=== PATIENT | female | born 1990 | race Caucasian/White ===

== ENCOUNTER 2017-09-20 11:03 | Inpatient (IN) | payer MEDICAID ==
[~2017-09-20] VITALS: Ht 167.6 cm; Wt 66.2 kg
[2017-09-20 11:44] VITALS: BP 123/77
[2017-09-20] MEDS ORDERED: HYDR-4031 PO (12:06)
[2017-09-20] MEDS ORDERED: INFLUENZA VIRUS VACCINE QVS 2017-18 (3YR+)/PF 60 MCG/0.5 ML SYRINGE IM ONE (12:30)
[2017-09-20 14:10] VITALS: BP 121/83
[2017-09-20] MEDS: LORazepam 2 MG TABLET PO PRN ×2 (15:01→19:12)
[2017-09-20 16:25] VITALS: BP 128/75
[2017-09-21 06:52] VITALS: BP 115/72
[2017-09-21 07:59] LABS: BASOPHILS # (AUTO) 0.05 K/uL (0.00-0.20); BASOPHILS % (AUTO) 0.8 % (0.0-2.0); EOSINOPHILS % (AUTO) 2.98 % (1.0-6.0); HEMATOCRIT 42.3 % (36-46); HEMOGLOBIN 14.2 g/dL (12.0-16.0); LYMPHOCYTES # (AUTO) 2.1 K/uL (1.0-4.8); LYMPHOCYTES % (AUTO) 30.8 % (22.0-44.0); MEAN CORPUSCULAR HEMOGLOBIN 31.8 pg (26.0-34.0); MEAN CORPUSCULAR HGB CONC 33.5 G/dL (31.0-37.0); MEAN CORPUSCULAR VOLUME 95 fL (80-100); MONOCYTES # (AUTO) 0.4 K/uL (0.1-1.0); MONOCYTES % (AUTO) 6.2 % (2.0-9.0); NEUTROPHILS % (AUTO) 59.2 % (40.0-70.0); PLATELET COUNT (AUTO) 307 K/uL (150-450); RED BLOOD CELL COUNT(AUTO) 4.45 MIL/uL (4.00-5.20); RED CELL DISTRIBUTION WIDTH 12.9 % (11.5-14.5); WHITE BLOOD COUNT (AUTO) 6.7 K/uL (4.5-11.0)
[2017-09-21 08:34] LABS: ALANINE AMINOTRANSFERASE 25 U/L (12-78); ALBUMIN 3.5 g/dL (3.4-5.0); ANION GAP 9 mmol/L (8-16); ASPARTATE AMINOTRANSFERASE 19 U/L (15-37); BILIRUBIN,TOTAL 0.3 mg/dL (0.1-1.0); CALCIUM, TOTAL 9.2 mg/dL (8.8-10.5); CARBON DIOXIDE 27 mmol/L (22-29); CHLORIDE 102 mmol/L (98-107); CHOL/HDL RATIO 2.1 (3.9-5.7); CREATININE 0.79 mg/dL (0.60-1.30); GLOMERULAR FILTR. RATE CALC > 60 mL/min (>60); SODIUM SERUM 138 mmol/L (136-145); THYROID STIMULATING HORMONE 6.41 uIU/mL (0.36-3.74); TOTAL PROTEIN, SERUM 7.8 g/dL (6.4-8.2); UREA NITROGEN, BLOOD 12 mg/dL (7-18)
[2017-09-21] MEDS: LORazepam 2 MG TABLET PO PRN ×3 (08:35→18:53)
[2017-09-21 08:43] LABS: HEMOGLOBIN A1C 5.2 % (4.5-6.2)
[2017-09-21 16:27] VITALS: BP 120/78
[2017-09-21] MEDS ORDERED: IBUPROFEN 400 MG TABLET PO PRN (18:45)
[2017-09-21] MEDS: ZOLPIDEM TARTRATE 10 MG TABLET PO PRN (22:44)
[2017-09-22] MEDS: LEVOTHYROXINE SODIUM 50 MCG TABLET PO SCH (06:38)
[2017-09-22 06:44] VITALS: BP 111/68
[2017-09-22] MEDS: LITHIUM CARBONATE 300 MG CAPSULE PO SCH ×2 (08:38→16:18)
[2017-09-22 09:15] VITALS: BP 118/78
[2017-09-22] MEDS: LORazepam 2 MG TABLET PO PRN ×2 (11:00→15:10)
[2017-09-22] MEDS: HALOPERIDOL 5 MG TABLET PO PRN (13:34)
[2017-09-22 16:13] VITALS: BP 116/71
[2017-09-22] MEDS: ZOLPIDEM TARTRATE 10 MG TABLET PO PRN (20:13)
[2017-09-23 06:05] VITALS: BP 121/69
[2017-09-23] MEDS: LEVOTHYROXINE SODIUM 50 MCG TABLET PO SCH (06:35)
[2017-09-23] MEDS: LORazepam 2 MG TABLET PO PRN ×3 (07:00→16:04)
[2017-09-23] MEDS: HALOPERIDOL 5 MG TABLET PO PRN ×3 (07:00→16:04)
[2017-09-23] MEDS: LITHIUM CARBONATE 300 MG CAPSULE PO SCH ×2 (08:23→16:04)
[2017-09-23 08:39] VITALS: BP 112/68
[2017-09-23] MEDS: ACETAMINOPHEN 325 MG TABLET PO PRN ×2 (08:53→16:33)
[2017-09-23 16:21] VITALS: BP 102/62
[2017-09-23 18:33] VITALS: BP 108/65
[2017-09-24] MEDS: LORazepam 2 MG TABLET PO PRN ×2 (06:16→11:44)
[2017-09-24] MEDS: HALOPERIDOL 5 MG TABLET PO PRN ×2 (06:16→12:01)
[2017-09-24] MEDS: LEVOTHYROXINE SODIUM 50 MCG TABLET PO SCH (06:16)
[2017-09-24 06:17] VITALS: BP 111/64
[2017-09-24] MEDS: LITHIUM CARBONATE 300 MG CAPSULE PO SCH (08:03)
[2017-09-24 08:34] VITALS: BP 106/62
[2017-09-24] MEDS ORDERED: LITH300C3 PO (11:41)
[2017-09-24] MEDS ORDERED: LEVO50 PO (11:50)
== END 2017-09-24 14:30 | disposition home or self-care (01) | DRG 753 ==
LOC: B3A 11:56
PROVIDERS: ADMIT Psychiatry & Neurology Psychiatry; ATTEND Psychiatry & Neurology Psychiatry
DX: F31.9 Bipolar disorder, unspecified (principal); R45.851 Suicidal ideations; E03.9 Hypothyroidism, unspecified; E78.5 Hyperlipidemia, unspecified; F10.10 Alcohol abuse, uncomplicated; F19.10 Other psychoactive substance abuse, uncomplicated; Z71.41 Alcohol abuse counseling and surveillance of alcoholic; Z71.51 Drug abuse counseling and surveillance of drug abuser; Z28.21 Immunization not carried out because of patient refusal
CPT/HCPCS: 83036; 84439; 84443